=== PATIENT | male | born 1955 | race Asian ===

== ENCOUNTER 2021-02-12 05:29 | Day surgery (SDC) | payer MEDICARE, OTHER ==
[2021-02-10 12:17] LABS: COVID AG,FIA SOURCE NASOPHARYNGEAL
[~2021-02-12] VITALS: Ht 180.3 cm; Wt 91.4 kg
[~2021-02-12 05:29] MED LIST: 0.9% SODIUM CHLORIDE 10 ML SYRINGE IVP PRN; KETOROLAC TROMETHAMINE 0.5% 5 ML OPHTHALMIC SOLUTION ONE; MOXIFLOXACIN HCL 0.5% 3 ML OPHTHALMIC SOLUTION ONE; PHENYLEPHRINE HCL 2.5% 2 ML OPHTHALMIC SOLUTION ONE; TROPICAMIDE 1% 2 ML OPHTHALMIC SOLUTION ONE
[2021-02-12] MEDS ORDERED: POVIDONE-IODINE 10% 15 ML SOLUTION UD TP ONE (05:30)
[2021-02-12] MEDS ORDERED: CHONDR SULF A SOD/HYALURONATE 1.05 ML KIT IO ONE (05:30)
[2021-02-12] MEDS ORDERED: LIDOCAINE/PF 1% 2 ML VIAL CAUDAL ONE (05:30)
[2021-02-12] MEDS ORDERED: EPINEPHrine 1:1,000 [1 MG/ML] AMP ET ONE (05:30)
[2021-02-12] MEDS ORDERED: BALANCED SALT 15 ML OPHTHALMIC IRRIG.SOLN IO ONE (05:30)
[2021-02-12] MEDS ORDERED: TETRACAINE HCL/PF 0.5% 4 ML OPHTHALMIC SOLUTION OD ONE (05:30)
[2021-02-12] MEDS: TROPICAMIDE 1% 2 ML OPHTHALMIC SOLUTION OS SCH ×3 (05:58→06:11)
[2021-02-12] MEDS: PHENYLEPHRINE HCL 2.5% 2 ML OPHTHALMIC SOLUTION OS SCH ×3 (05:58→06:11)
[2021-02-12] MEDS: MOXIFLOXACIN HCL 0.5% 3 ML OPHTHALMIC SOLUTION OS SCH ×3 (05:59→06:11)
[2021-02-12] MEDS: KETOROLAC TROMETHAMINE 0.5% 5 ML OPHTHALMIC SOLUTION OS SCH ×3 (05:59→06:11)
[2021-02-12] MEDS ORDERED: MIDAZOLAM HCL 2 MG/2 ML VIAL IVP ONE (12:00)
[2021-02-12] MEDS ORDERED: FentaNYL CITRATE PF 100 MCG/2 ML VIAL IVP ONE (12:00)
== END 2021-02-12 08:30 | disposition home or self-care (01) ==
LOC: SURGERY 05:29
PROVIDERS: ATTEND Ophthalmology
DX: H25.12 Age-related nuclear cataract, left eye (principal); Z87.891 Personal history of nicotine dependence; Z98.890 Other specified postprocedural states; Z79.899 Other long term (current) drug therapy
CPT/HCPCS: 66984; 87426; 93005; A9575; C9803; J0171; J2250; J3010; J3490; V2632

== ENCOUNTER 2021-04-30 05:42 | Day surgery (SDC) | payer MEDICARE, OTHER ==
[2021-04-28 10:00] LABS: COVID AG,FIA SOURCE NASOPHARYNGEAL
[~2021-04-30] VITALS: Ht 180.3 cm; Wt 91.4 kg
[~2021-04-30 05:42] MED LIST changes: -0.9% SODIUM CHLORIDE 10 ML SYRINGE IVP PRN; +ATOR-2 PO; +RINGERS SOLUTION,LACTATED 500 ML IV ONE; +TAMS-13 PO; +TIZA-194 PO; +TRAM50TA4 PO
[2021-04-30] MEDS ORDERED: FentaNYL CITRATE PF 100 MCG/2 ML VIAL IVP ONE (05:43)
[2021-04-30] MEDS ORDERED: MIDAZOLAM HCL 2 MG/2 ML VIAL IVP ONE (05:43)
[2021-04-30] MEDS ORDERED: TETRACAINE HCL/PF 0.5% 4 ML OPHTHALMIC SOLUTION OU ONE (05:43)
[2021-04-30] MEDS ORDERED: BALANCED SALT 15 ML OPHTHALMIC IRRIG.SOLN OU ONE (05:43)
[2021-04-30] MEDS ORDERED: CHONDR SULF A SOD/HYALURONATE 1.05 ML KIT IO ONE (05:43)
[2021-04-30] MEDS ORDERED: POVIDONE-IODINE 10% 15 ML SOLUTION UD TP ONE (05:43)
[2021-04-30] MEDS ORDERED: LIDOCAINE/PF 1% 2 ML VIAL IM ONE (05:43)
[2021-04-30] MEDS ORDERED: EPINEPHrine 1:1,000 [1 MG/ML] AMP IM ONE (05:43)
[2021-04-30] MEDS ORDERED: RINGERS SOLUTION,LACTATED 500 ML IV ONE (06:30)
[2021-04-30] MEDS: TROPICAMIDE 1% 2 ML OPHTHALMIC SOLUTION OD SCH ×3 (06:33→06:45)
[2021-04-30] MEDS: MOXIFLOXACIN HCL 0.5% 3 ML OPHTHALMIC SOLUTION OD SCH ×3 (06:33→06:45)
[2021-04-30] MEDS: PHENYLEPHRINE HCL 2.5% 2 ML OPHTHALMIC SOLUTION OD SCH ×3 (06:33→06:45)
[2021-04-30] MEDS: KETOROLAC TROMETHAMINE 0.5% 5 ML OPHTHALMIC SOLUTION OD SCH ×3 (06:33→06:45)
== END 2021-04-30 09:30 | disposition home or self-care (01) ==
LOC: SURGERY 05:42
PROVIDERS: ATTEND Ophthalmology
DX: H25.11 Age-related nuclear cataract, right eye (principal); Z79.899 Other long term (current) drug therapy; Z98.890 Other specified postprocedural states; Z72.89 Other problems related to lifestyle; Z98.42 Cataract extraction status, left eye
CPT/HCPCS: 66984; 87426; A9575; C9803; J0171; J2250; J3010; J3490; J7120; V2632